=== PATIENT | female | born 1995 | race Caucasian/White ===

== ENCOUNTER → 2023-04-23 15:44 | Outpatient (CLI) | payer OTHER, SELFPAY ==
--- NOTE | ~2023-04-23 | US_ITS ---
EXAMINATION: US OB <=14 wk fetus w TV DATE: 04/23/2023 16:14 INDICATION: with inconclusive viability. TECHNIQUE: Real-time transabdominal and transvaginal pelvic ultrasound was performed. COMPARISON: None. FINDINGS: TRANSABDOMINAL ULTRASOUND: The uterus measures 9.4 x 5.8 x 6.2 cm. TRANSVAGINAL ULTRASOUND: There is an intrauterine gestational sac. A yolk sac is identified. The fet al crown rump length measures 2.1 cm, which correlates with an estimated gestational age of 8 weeks a nd 5 day(s) (+/-) 5 day(s). heart motion is identified measuring 176 beats per minute (bpm) by M-mode Doppler. The right ovary is not visualized. The left ovary measures 2.5 x 1.3 x 1.3 cm. There is no free fluid in the pelvis. IMPRESSION: 1. Single living intrauterine gestation with estimated date of delivery of 11/28/2023. Reviewed, dictated and finalized at location A. [employer]PERATIONS SUPERVISOR IMPRESSION: 1. Single living intrauterine gestation with estimated date of delivery of 11/27.
== END ==
PROVIDERS: PCP Nurse Practitioner Family; Visit Provider Nurse Practitioner Family
DX: O36.80X0 Pregnancy with inconclusive fetal viability, not applicable or unspecified (principal); Z3A.00 Weeks of gestation of pregnancy not specified
CPT/HCPCS: 76801; 76817

== ENCOUNTER 2023-08-25 12:42 | Outpatient (CLI) | payer OTHER, SELFPAY ==
[2023-08-25 14:12] LABS: Basophils Percent Auto 0.2 % (0.2-1.2); Eosinophils Absolute Auto 0.1 K/mm3 (0-0.3); Eosinophils Percent Auto 0.5 % (0-4.4); Hematocrit 30.3 % (37.0-47.0); Hemoglobin 10.5 g/dL (12.0-15.0); Immature Granulocyte Absolute 0.12 K/mm3 (0.00-0.031); Immature Granulocyte Percent A 0.9 % (0-0.5); Lymphocytes Absolute Auto 1.79 K/mm3 (0.9-3.2); Lymphocytes Percent Auto 13.8 % (18.3-44.2); Mean Corpuscular HGB Conc 34.7 g/dl (32-36); Mean Corpuscular Hemoglobin 31.5 pg (26-34); Mean Platelet Volume 8.7 fl (7.4-10.4); Monocytes Absolute Auto 0.7 K/mm3 (0.1-0.6); Monocytes Percent Auto 5.1 % (2.6-8.5); Neutrophils Absolute Auto 10.3 K/mm3 (1.3-6.7); Neutrophils Percent Auto 79.5 % (45.5-73.1); Platelet Count Result 250 k/mm3 (150-375); Red Blood Count 3.33 M/mm3 (4.2-5.4); Red Cell Distribution Width 12.4 % (11.5-14.5)
[2023-08-25 14:25] LABS: Alanine Aminotransferase 16 U/L (6-35); Albumin Level 3.7 g/dL (3.5-5.1); Alkaline Phosphatase 50 U/L (38-126); Anion Gap 6 mmol/L (4-12); Aspartate Amino Transferase 18 U/L (14-36); Bilirubin,Total 0.4 mg/dL (0.2-1.3); Blood Urea Nitrogen 6 mg/dL (7-17); Carbon Dioxide 21 mmol/L (22-30); Chloride 107 mmol/L (98-107); Estimated Glomerular Filt Rate > 60; Glucose 165 mg/dL (65-110); Glucose 1 Hour PP 50gm Dose 164 mg/dL; Potassium 3.2 mmol/L (3.4-5.0); Sodium 134 mmol/L (137-145)
[2023-08-31 17:53] LABS: Chenodeoxycholic Acid <0.5 umol/L (< OR = 3.9); Cholic Acid <0.5 umol/L (< OR = 2.8); Deoxycholic Acid <0.5 umol/L (< OR = 2.3); Total Bile Acids <1.5 umol/L (< OR = 8.3)
== END 2023-08-25 12:43 | disposition home or self-care (01) ==
LOC: ANHLAB 12:43
PROVIDERS: PCP Nurse Practitioner Family; Visit Provider Nurse Practitioner Family
DX: O99.719 Diseases of the skin and subcutaneous tissue complicating pregnancy, unspecified trimester (principal); L29.9 Pruritus, unspecified
CPT/HCPCS: 36415; 80053; 82542; 82947; 85025

== ENCOUNTER 2023-08-28 07:29 | Outpatient (CLI) | payer OTHER, SELFPAY ==
[2023-08-28 08:09] LABS: Glucose Fasting Gestational 78 mg/dL (>/=95)
[2023-08-28 09:43] LABS: Glucose 1 Hour Gest 128 mg/dL (>/=180)
[2023-08-28 11:18] LABS: Glucose 2 Hour Gest 111 mg/dL (>/= 155)
[2023-08-28 12:47] LABS: Glucose 3 Hour Gest 32 mg/dL (>/=140)
== END 2023-08-28 07:30 | disposition home or self-care (01) ==
LOC: ANHLAB 07:31
PROVIDERS: PCP Nurse Practitioner Family; Visit Provider Nurse Practitioner Family
DX: O99.810 Abnormal glucose complicating pregnancy (principal); Z3A.00 Weeks of gestation of pregnancy not specified
CPT/HCPCS: 36415; 82951; 82952

== ENCOUNTER 2023-10-09 13:24 | Outpatient (CLI) | payer OTHER, SELFPAY ==
[2023-10-09 13:45] VITALS: BP 145/86; PULSE 85
[2023-10-09 13:46] VITALS: BP 145/86; PULSE 90; BMI 28.0
[2023-10-09 14:05] VITALS: BP 145/86; PULSE 90
[2023-10-09 14:15] VITALS: BP 141/94; PULSE 74
[2023-10-09 14:18] LABS: Basophils Percent Auto 0.3 % (0.2-1.2); Eosinophils Absolute Auto 0.1 K/mm3 (0-0.3); Eosinophils Percent Auto 0.6 % (0-4.4); Hematocrit 34.2 % (37.0-47.0); Hemoglobin 12.1 g/dL (12.0-15.0); Immature Granulocyte Absolute 0.09 K/mm3 (0.00-0.031); Immature Granulocyte Percent A 0.7 % (0-0.5); Mean Corpuscular HGB Conc 35.4 g/dl (32-36); Mean Corpuscular Volume 90.5 fl (80-100); Mean Platelet Volume 9.3 fl (7.4-10.4); Monocytes Absolute Auto 0.9 K/mm3 (0.1-0.6); Neutrophils Absolute Auto 9.4 K/mm3 (1.3-6.7); Neutrophils Percent Auto 77.4 % (45.5-73.1); Platelet Count Result 231 k/mm3 (150-375); Red Blood Count 3.78 M/mm3 (4.2-5.4); Red Cell Distribution Width 12.3 % (11.5-14.5); White Blood Count 12.2 K/mm3 (4.5-10.0)
[2023-10-09 14:19] LABS: Appearance Urine Clear (Clear); Bilirubin Urine Negative (Negative); Blood Urine Negative (Negative); Color Urine Yellow (Yellow); Glucose Urine UA Negative (Negative); Ketones Urine Negative (Negative); Leukocyte Esterase Ur Negative LEU/UL (Negative); Nitrate Urine Negative (Negative); Protein Urine Negative (Negative); Specific Grav Ur 1.007 (1.001-1.035); Urobilinogen Urine 0.2 mg/dL (<2.0)
[2023-10-09 14:25] LABS: Creatinine Urine 42.7 mg/dL; Total Protein Urine Random 19 mg/dL; Ur Ttl Prot Creatinine Ratio 0.44 mg/mg (0-0.20)
[2023-10-09 14:26] LABS: Add Urine Microscopic? NO
[2023-10-09 14:30] VITALS: BP 143/91; PULSE 68
[2023-10-09 14:30] LABS: Alanine Aminotransferase 11 U/L (6-35); Albumin Level 3.6 g/dL (3.5-5.1); Alkaline Phosphatase 77 U/L (38-126); Anion Gap 9 mmol/L (4-12); Aspartate Amino Transferase 16 U/L (14-36); Bilirubin,Total 0.3 mg/dL (0.2-1.3); Blood Urea Nitrogen 5 mg/dL (7-17); Calcium 8.9 mg/dL (8.4-10.2); Carbon Dioxide 22 mmol/L (22-30); Chloride 103 mmol/L (98-107); Estimated Glomerular Filt Rate > 60; Glucose 118 mg/dL (65-110); Potassium 3.6 mmol/L (3.4-5.0); Sodium 134 mmol/L (137-145); Uric Acid 3.8 mg/dL (2.5-7.5)
[2023-10-09 14:42] VITALS: BP 136/81; PULSE 74
--- NOTE | 2023-10-09 14:47 | PC.NURSE ---
Dr. West informed of reactive NST, BP's, and labs including total protein / creatinine ratio. Orders for discharge received.
[2023-10-09 15:10] LABS: HIV 1/2 Ab P24 Ag Result Negative (Negative)
[2023-10-12 11:26] LABS: Rapid Plasma Reagin Non-Reactive (NonReactive)
== END 2023-10-09 15:41 | disposition home or self-care (01) ==
LOC: ANHOBOP 13:32 → ANHOBPP 13:34
PROVIDERS: PCP Nurse Practitioner Family; Visit Provider Obstetrics & Gynecology
DX: O13.9 Gestational [pregnancy-induced] hypertension without significant proteinuria, unspecified trimester (principal); Z3A.00 Weeks of gestation of pregnancy not specified
CPT/HCPCS: 36415; 59025; 80053; 81003; 82570; 84156; 84550; 85025; 86592; 86703; 99199; G0432

== ENCOUNTER 2023-10-10 15:24 | Outpatient (NON) | payer OTHER, SELFPAY ==
[2023-10-10 15:34] VITALS: BMI 28.0
[2023-10-10 16:01] LABS: Collection Time Urine 24 HOURS
[2023-10-10 16:02] LABS: Total Volume 24 Hour Urine 2000 ml
[2023-10-10 16:10] LABS: Total Protein Urine Random 23 mg/dL
[2023-10-10 16:11] LABS: Creatinine Urine 62.4 mg/dL; Patient Weight 158 Lbs
[2023-10-10 16:23] LABS: Total Protein Urine 24 Hr 460 mg/24hr (28-141); Total Volume 24 Hour Urine 2000 ml
== END 2023-10-10 15:25 | disposition home or self-care (01) ==
LOC: ANHOBOP 15:30
PROVIDERS: PCP Nurse Practitioner Family; Visit Provider Obstetrics & Gynecology
DX: Z34.90 Encounter for supervision of normal pregnancy, unspecified, unspecified trimester (principal); Z3A.00 Weeks of gestation of pregnancy not specified
CPT/HCPCS: 81050; 82575; 84156

== ENCOUNTER 2023-10-13 11:43 | Outpatient (CLI) | payer OTHER, SELFPAY ==
[2023-10-13 12:19] VITALS: BP 144/92; PULSE 70
[2023-10-13 12:20] VITALS: BP 144/92; PULSE 78; BMI 28.0
[2023-10-13 12:23] LABS: Basophils Absolute Auto 0.1 K/mm3 (0.0-0.1); Basophils Percent Auto 0.4 % (0.2-1.2); Eosinophils Percent Auto 0.3 % (0-4.4); Hematocrit 36.8 % (37.0-47.0); Hemoglobin 13.1 g/dL (12.0-15.0); Immature Granulocyte Absolute 0.12 K/mm3 (0.00-0.031); Immature Granulocyte Percent A 0.9 % (0-0.5); Lymphocytes Absolute Auto 1.91 K/mm3 (0.9-3.2); Lymphocytes Percent Auto 14.7 % (18.3-44.2); Mean Corpuscular HGB Conc 35.6 g/dl (32-36); Mean Corpuscular Hemoglobin 32.3 pg (26-34); Mean Corpuscular Volume 90.6 fl (80-100); Mean Platelet Volume 9.5 fl (7.4-10.4); Monocytes Absolute Auto 0.9 K/mm3 (0.1-0.6); Monocytes Percent Auto 6.5 % (2.6-8.5); Neutrophils Absolute Auto 10.1 K/mm3 (1.3-6.7); Neutrophils Percent Auto 77.2 % (45.5-73.1); Platelet Count Result 260 k/mm3 (150-375); Red Blood Count 4.06 M/mm3 (4.2-5.4); Red Cell Distribution Width 12.4 % (11.5-14.5)
[2023-10-13 12:30] VITALS: BP 143/84; PULSE 72
[2023-10-13 12:35] LABS: Alanine Aminotransferase 11 U/L (6-35); Albumin Level 3.8 g/dL (3.5-5.1); Alkaline Phosphatase 97 U/L (38-126); Anion Gap 10 mmol/L (4-12); Aspartate Amino Transferase 17 U/L (14-36); Bilirubin,Total 0.5 mg/dL (0.2-1.3); Blood Urea Nitrogen 9 mg/dL (7-17); Calcium 10.1 mg/dL (8.4-10.2); Carbon Dioxide 21 mmol/L (22-30); Chloride 102 mmol/L (98-107); Estimated Glomerular Filt Rate > 60; Glucose 71 mg/dL (65-110); Potassium 4.4 mmol/L (3.4-5.0); Sodium 133 mmol/L (137-145); Uric Acid 3.9 mg/dL (2.5-7.5)
[2023-10-13 12:45] VITALS: BP 150/88; PULSE 85
[2023-10-13 13:00] VITALS: BP 143/86; PULSE 81
[2023-10-13 13:03] VITALS: BP 143/86; PULSE 79
--- NOTE | 2023-10-13 14:15 | PC.NURSE ---
Dr. West returned call and informed of BP's, lab results, and reactive NST. Orders for testing received.
== END 2023-10-13 14:19 | disposition home or self-care (01) ==
LOC: ANHOBOP 11:50 → ANHLDR 11:53
PROVIDERS: PCP Nurse Practitioner Family; Visit Provider Obstetrics & Gynecology
DX: O13.9 Gestational [pregnancy-induced] hypertension without significant proteinuria, unspecified trimester (principal); O14.00 Mild to moderate pre-eclampsia, unspecified trimester; Z3A.00 Weeks of gestation of pregnancy not specified
CPT/HCPCS: 36415; 59025; 80053; 84550; 85025; 99199

== ENCOUNTER 2023-10-18 17:54 | Outpatient (CLI) | payer OTHER, SELFPAY ==
[2023-10-18] VITALS (7 sets, daily range): BP systolic 140–154; BP diastolic 84–96; PULSE 67–72
[2023-10-18 18:39] LABS: Basophils Absolute Auto 0.1 K/mm3 (0.0-0.1); Basophils Percent Auto 0.4 % (0.2-1.2); Eosinophils Absolute Auto 0.1 K/mm3 (0-0.3); Eosinophils Percent Auto 0.6 % (0-4.4); Hematocrit 32.6 % (37.0-47.0); Hemoglobin 11.6 g/dL (12.0-15.0); Immature Granulocyte Absolute 0.08 K/mm3 (0.00-0.031); Immature Granulocyte Percent A 0.6 % (0-0.5); Mean Corpuscular HGB Conc 35.6 g/dl (32-36); Mean Corpuscular Hemoglobin 32.2 pg (26-34); Mean Corpuscular Volume 90.6 fl (80-100); Mean Platelet Volume 9.6 fl (7.4-10.4); Monocytes Absolute Auto 0.8 K/mm3 (0.1-0.6); Monocytes Percent Auto 6.4 % (2.6-8.5); Platelet Count Result 209 k/mm3 (150-375); Red Cell Distribution Width 12.3 % (11.5-14.5); White Blood Count 13.1 K/mm3 (4.5-10.0)
[2023-10-18 18:46] LABS: Creatinine Urine 26.8 mg/dL; Total Protein Urine Random 23 mg/dL; Ur Ttl Prot Creatinine Ratio 0.86 mg/mg (0-0.20)
[2023-10-18 18:50] LABS: Alanine Aminotransferase 10 U/L (6-35); Albumin Level 3.4 g/dL (3.5-5.1); Alkaline Phosphatase 93 U/L (38-126); Anion Gap 8 mmol/L (4-12); Aspartate Amino Transferase 18 U/L (14-36); Bilirubin,Total 0.3 mg/dL (0.2-1.3); Blood Urea Nitrogen 9 mg/dL (7-17); Calcium 9.6 mg/dL (8.4-10.2); Carbon Dioxide 19 mmol/L (22-30); Chloride 106 mmol/L (98-107); Estimated Glomerular Filt Rate > 60; Glucose 73 mg/dL (65-110); Potassium 3.8 mmol/L (3.4-5.0); Sodium 133 mmol/L (137-145); Uric Acid 4.6 mg/dL (2.5-7.5)
[2023-10-18 18:59] LABS: Appearance Urine Clear (Clear); Bilirubin Urine Negative (Negative); Blood Urine Negative (Negative); Color Urine Yellow (Yellow); Glucose Urine UA Negative (Negative); Ketones Urine Negative (Negative); Leukocyte Esterase Ur Negative LEU/UL (Negative); Nitrate Urine Negative (Negative); Protein Urine Negative (Negative); Specific Grav Ur 1.006 (1.001-1.035); Urobilinogen Urine 0.2 mg/dL (<2.0)
[2023-10-18 19:00] LABS: Add Urine Microscopic? NO
--- NOTE | 2023-10-19 09:36 | P.PNOB_ITS ---
OB - Triage/Final Diagnosis Visit Information Date of evaluation: 10/18/23 Reason for evaluation: other (elevated BP) Comments/Additional reasons for admission: I have assessed the risk for this patient, Michela Cadena, and determined that she would benefit from observation care. Evaluation Laboratory results: Laboratory Tests 10/18/23 18:31 WBC 13.1 H RBC 3.60 L Hgb 11.6 L Hct 32.6 L MCV 90.6 MCH 32.2 MCHC 35.6 RDW 12.3 Plt Count 209 MPV 9.6 Immature Gran % (Auto) 0.6 H Neut % (Auto) 76.0 H Lymph % (Auto) 16.0 L [place] % (Auto) 6.4 Eos % (Auto) 0.6 Baso % (Auto) 0.4 Lymph # (Auto) 2.10 [place] # (Auto) 0.8 H Eos # (Auto) 0.1 Baso # (Auto) 0.1 Abs Immat Gran (auto) 0.08 H Absolute Neuts (auto) 10.0 H Absolute Nucleated RBC 0.000 Nucleated RBC % 0.0 Sodium 133 L Potassium 3.8 Chloride 106 Carbon Dioxide 19 L Anion Gap 8 BUN 9 Creatinine 0.40 L Estim Creat Clear Calc Not Reportable Estimated GFR > 60 Glucose 73 Uric Acid 4.6 Calcium 9.6 Total Bilirubin 0.3 AST 18 ALT 10 Alkaline Phosphatase 93 Total Protein 6.0 L Albumin 3.4 L Urine Color Yellow Urine Appearance Clear Urine pH 7.0 Ur Specific [place] 1.006 Urine Protein Negative Urine Glucose (UA) Negative Urine Ketones Negative Ur Blood (Man) Negative Urine Nitrate Negative Urine Bilirubin Negative Urine Urobilinogen 0.2 Leukocyte Esterase Rfl Negative U Random Total Protein 23 Urine Creatinine 26.8 Protein/Creat Ratio 2 0.86 H Vital signs: Vital Signs - 24 hr 10/18/23 18:15 10/18/23 18:45 10/18/23 19:00 Pulse Rate 71 72 67 Blood Pressure 154/96 H 140/90 141/84 H 10/18/23 19:15 10/18/23 19:45 10/18/23 20:00 Pulse Rate 70 67 72 Blood Pressure 148/93 H 149/91 H 151/93 H 10/18/23 20:15 Pulse Rate 72 Blood Pressure 143/85 H
== END 2023-10-18 20:22 | disposition home or self-care (01) ==
LOC: ANHOBOP 17:58 → ANHOBPP 10-26 07:06
PROVIDERS: PCP Nurse Practitioner Family; Visit Provider Obstetrics & Gynecology
DX: O13.9 Gestational [pregnancy-induced] hypertension without significant proteinuria, unspecified trimester (principal)
CPT/HCPCS: 36415; 59025; 80053; 81003; 82570; 84156; 84550; 85025; 99199

== ENCOUNTER 2023-10-24 12:39 | Outpatient (RCR) | payer OTHER, SELFPAY ==
[2023-10-16 11:48] VITALS: BP 141/97; PULSE 82
[2023-10-20 11:25] LABS: Hemoglobin 11.9 g/dL (12.0-15.0); Mean Corpuscular Hemoglobin 32.1 pg (26-34); Mean Corpuscular Volume 91.6 fl (80-100); Mean Platelet Volume 9.8 fl (7.4-10.4); Platelet Count Result 217 k/mm3 (150-375); Red Blood Count 3.71 M/mm3 (4.2-5.4); Red Cell Distribution Width 12.5 % (11.5-14.5); White Blood Count 11.6 K/mm3 (4.5-10.0)
[2023-10-20 11:37] LABS: Alanine Aminotransferase 10 U/L (6-35); Albumin Level 3.6 g/dL (3.5-5.1); Alkaline Phosphatase 84 U/L (38-126); Anion Gap 9 mmol/L (4-12); Aspartate Amino Transferase 16 U/L (14-36); Bilirubin,Total 0.3 mg/dL (0.2-1.3); Blood Urea Nitrogen 12 mg/dL (7-17); Calcium 9.5 mg/dL (8.4-10.2); Carbon Dioxide 23 mmol/L (22-30); Chloride 103 mmol/L (98-107); Estimated Glomerular Filt Rate > 60; Glucose 77 mg/dL (65-110); Potassium 3.8 mmol/L (3.4-5.0); Sodium 135 mmol/L (137-145); Uric Acid 5.2 mg/dL (2.5-7.5)
[2023-10-20 11:48] LABS: Creatinine Urine 153.8 mg/dL; Total Protein Urine Random 42 mg/dL; Ur Ttl Prot Creatinine Ratio 0.27 mg/mg (0-0.20)
[2023-10-20 12:39] VITALS: BP 141/97; PULSE 91
[2023-10-23] MEDS: BETAMETHASONE SOD PHOS/ACETATE 30 MG/5 ML VIAL 12 MG IM (12:25)
[2023-10-23 12:40] LABS: Hematocrit 30.5 % (37.0-47.0); Hemoglobin 10.7 g/dL (12.0-15.0); Mean Corpuscular HGB Conc 35.1 g/dl (32-36); Mean Corpuscular Volume 91.3 fl (80-100); Mean Platelet Volume 9.6 fl (7.4-10.4); Platelet Count Result 204 k/mm3 (150-375); Red Blood Count 3.34 M/mm3 (4.2-5.4); Red Cell Distribution Width 12.4 % (11.5-14.5); White Blood Count 10.4 K/mm3 (4.5-10.0)
[2023-10-23 13:30] LABS: HIV 1/2 Ab P24 Ag Result Negative (Negative)
[2023-10-23 16:02] LABS: Rapid Plasma Reagin Non-Reactive (NonReactive)
[2023-10-23 16:05] VITALS: BP 128/77; PULSE 87
[2023-10-23 17:46] VITALS: BP 128/77; PULSE 87
--- NOTE | ~2023-10-24 | US_ITS ---
EXAMINATION: US OB limited DATE: 10/20/2023 12:24 INDICATION: -induced hypertension. Third trimester. TECHNIQUE: Real-time ultrasound of the pelvis was performed. COMPARISON: Ultrasound 04/23/2023 FINDINGS: There is a single fetus in vertex presentation. The placenta is on the right. heart rate is 14 5 beats per minute (bpm). The amniotic fluid index is 14.5 cm, which is normal. IMPRESSION: 1. Single living fetus in vertex presentation. 2. Normal amniotic fluid index. Reviewed, dictated and finalized at location A.
[2023-10-24] MEDS: BETAMETHASONE SOD PHOS/ACETATE 30 MG/5 ML VIAL 12 MG IM (12:50)
== END 2023-10-24 12:53 | disposition home or self-care (01) ==
LOC: ANHOBOP 12:39
PROVIDERS: PCP Nurse Practitioner Family; Visit Provider Obstetrics & Gynecology
DX: O14.93 Unspecified pre-eclampsia, third trimester (principal); O16.3 Unspecified maternal hypertension, third trimester; Z11.4 Encounter for screening for human immunodeficiency virus [HIV]; Z11.3 Encounter for screening for infections with a predominantly sexual mode of transmission; Z3A.33 33 weeks gestation of pregnancy; Z3A.34 34 weeks gestation of pregnancy
CPT/HCPCS: 36415; 59025; 76815; 80053; 82570; 84156; 84550; 85027; 86592; 86703; 96372; G0432; J0702

== ENCOUNTER 2023-11-06 15:10 | Outpatient (RCR) | payer OTHER, SELFPAY ==
[2023-10-27 11:38] LABS: Basophils Percent Auto 0.3 % (0.2-1.2); Eosinophils Percent Auto 0.3 % (0-4.4); Hematocrit 32.5 % (37.0-47.0); Hemoglobin 11.4 g/dL (12.0-15.0); Immature Granulocyte Absolute 0.12 K/mm3 (0.00-0.031); Immature Granulocyte Percent A 0.9 % (0-0.5); Lymphocytes Absolute Auto 2.46 K/mm3 (0.9-3.2); Lymphocytes Percent Auto 18.9 % (18.3-44.2); Mean Corpuscular HGB Conc 35.1 g/dl (32-36); Mean Corpuscular Hemoglobin 32.5 pg (26-34); Mean Corpuscular Volume 92.6 fl (80-100); Mean Platelet Volume 9.9 fl (7.4-10.4); Monocytes Percent Auto 7.6 % (2.6-8.5); Neutrophils Absolute Auto 9.4 K/mm3 (1.3-6.7); Platelet Count Result 241 k/mm3 (150-375); Red Blood Count 3.51 M/mm3 (4.2-5.4); Red Cell Distribution Width 12.6 % (11.5-14.5)
[2023-10-27 11:44] LABS: Creatinine Urine 195.5 mg/dL; Total Protein Urine Random 114 mg/dL; Ur Ttl Prot Creatinine Ratio 0.58 mg/mg (0-0.20)
[2023-10-27 11:48] LABS: Alanine Aminotransferase 11 U/L (6-35); Albumin Level 3.2 g/dL (3.5-5.1); Alkaline Phosphatase 83 U/L (38-126); Anion Gap 8 mmol/L (4-12); Aspartate Amino Transferase 27 U/L (14-36); Bilirubin,Total 0.3 mg/dL (0.2-1.3); Blood Urea Nitrogen 12 mg/dL (7-17); Calcium 8.8 mg/dL (8.4-10.2); Carbon Dioxide 22 mmol/L (22-30); Chloride 103 mmol/L (98-107); Estimated Glomerular Filt Rate > 60; Glucose 79 mg/dL (65-110); Potassium 3.6 mmol/L (3.4-5.0); Sodium 133 mmol/L (137-145); Uric Acid 5.8 mg/dL (2.5-7.5)
[2023-10-27 11:53] LABS: Add Urine Microscopic? YES; Appearance Urine Turbid (Clear); Bacteria Urine 4+ /hpf; Bilirubin Urine Negative (Negative); Blood Urine Negative (Negative); Color Urine Yellow (Yellow); Glucose Urine UA Negative (Negative); Ketones Urine Trace mg/dL (Negative); Leukocyte Esterase Ur Trace LEU/UL (Negative); Need Manual Microscopic Reviewed; Nitrate Urine Negative (Negative); Protein Urine 2+ mg/dL (Negative); RBC Urine 21-50 /hpf (0-2); Specific Grav Ur 1.022 (1.001-1.035); Squamous Epithelial Cell Urine Moderate /hpf (Few); WBC Urine 51-100 /hpf (0-3); pH Urine 6.5 (5.0-9.0)
[2023-10-27 12:09] VITALS: BP 152/88; PULSE 65
--- NOTE | 2023-10-27 13:01 | PC.NURSE ---
Dr. West notified of lab results, vital signs, NST and DEMETRIUS. Okay to discharge
[2023-10-30 12:12] VITALS: BP 134/80; PULSE 84
[2023-11-03 15:49] LABS: Basophils Absolute Auto 0.1 K/mm3 (0.0-0.1); Basophils Percent Auto 0.4 % (0.2-1.2); Eosinophils Absolute Auto 0.1 K/mm3 (0-0.3); Hematocrit 36.1 % (37.0-47.0); Hemoglobin 12.5 g/dL (12.0-15.0); Immature Granulocyte Absolute 0.08 K/mm3 (0.00-0.031); Immature Granulocyte Percent A 0.6 % (0-0.5); Lymphocytes Percent Auto 15.4 % (18.3-44.2); Mean Corpuscular HGB Conc 34.6 g/dl (32-36); Mean Corpuscular Hemoglobin 31.9 pg (26-34); Mean Corpuscular Volume 92.1 fl (80-100); Mean Platelet Volume 9.8 fl (7.4-10.4); Monocytes Absolute Auto 0.9 K/mm3 (0.1-0.6); Monocytes Percent Auto 6.5 % (2.6-8.5); Neutrophils Absolute Auto 10.4 K/mm3 (1.3-6.7); Neutrophils Percent Auto 76.1 % (45.5-73.1); Platelet Count Result 255 k/mm3 (150-375); Red Blood Count 3.92 M/mm3 (4.2-5.4); Red Cell Distribution Width 12.5 % (11.5-14.5); White Blood Count 13.6 K/mm3 (4.5-10.0)
[2023-11-03 15:57] VITALS: BP 140/85; PULSE 74
[2023-11-03 15:59] LABS: Alanine Aminotransferase 11 U/L (6-35); Albumin Level 3.8 g/dL (3.5-5.1); Alkaline Phosphatase 115 U/L (38-126); Anion Gap 11 mmol/L (4-12); Aspartate Amino Transferase 18 U/L (14-36); Bilirubin,Total 0.3 mg/dL (0.2-1.3); Blood Urea Nitrogen 10 mg/dL (7-17); Calcium 9.2 mg/dL (8.4-10.2); Carbon Dioxide 21 mmol/L (22-30); Chloride 102 mmol/L (98-107); Creatinine Urine 23.9 mg/dL; Estimated Glomerular Filt Rate > 60; Glucose 102 mg/dL (65-110); Potassium 3.9 mmol/L (3.4-5.0); Sodium 134 mmol/L (137-145); Total Protein Urine Random 34 mg/dL; Ur Ttl Prot Creatinine Ratio 1.42 mg/mg (0-0.20); Uric Acid 5.1 mg/dL (2.5-7.5)
[2023-11-03 16:02] LABS: Add Urine Microscopic? YES; Appearance Urine Clear (Clear); Bacteria Urine None Seen /hpf; Bilirubin Urine Negative (Negative); Blood Urine Negative (Negative); Color Urine Yellow (Yellow); Glucose Urine UA Negative (Negative); Ketones Urine Negative (Negative); Leukocyte Esterase Ur Negative LEU/UL (Negative); Need Manual Microscopic Reviewed; Nitrate Urine Negative (Negative); Non Pathogenic Casts 0-2; Protein Urine Trace mg/dL (Negative); RBC Urine 0-2 /hpf (0-2); Specific Grav Ur 1.005 (1.001-1.035); Squamous Epithelial Cell Urine None Seen /hpf (Few); Urobilinogen Urine 0.2 mg/dL (<2.0); WBC Urine 0-5 /hpf (0-3); pH Urine 6.5 (5.0-9.0)
--- NOTE | ~2023-11-06 | US_ITS ---
EXAMINATION: US OB limited DATE: 10/30/2023 12:07 INDICATION: -induced hypertension. Third trimester. TECHNIQUE: Real-time ultrasound of the pelvis was performed. COMPARISON: Ultrasound 10/27/2023 FINDINGS: There is a single fetus in vertex presentation. The placenta is on the right. heart rate is 16 5 beats per minute (bpm). The cervical length is 3.1 cm on transabdominal images, which is normal. Th e amniotic fluid index is 9.8 cm cm, which is normal. IMPRESSION: 1. Single living fetus in vertex presentation. Reviewed, dictated and finalized at location A.
--- NOTE | ~2023-11-06 | US_ITS ---
LIMITED OBSTETRIC ULTRASOUND/BIOPHYSICAL PROFILE Ordering provider: Allan West MD History: . GHTN/ DEMETRIUS . Comparison: All FINDINGS: Single live fetus. PRESENTATION: Vertex. Longitudinal lie PLACENTAL LOCATION: Maternal right. No previa. HEART RATE: 144 bpm (normal is between 110 to 160 bpm). AMNIOTIC FLUID INDEX: 14.2 cm. 5th percentile is 7.9 cm. 95th percentile 24.9 cm. Largest vertical p ocket is 5 cm. IMPRESSION: Single live fetus of cephalic presentation. Normal amniotic fluid. Reviewed, dictated and finalized at location A.
--- NOTE | ~2023-11-06 | US_ITS ---
EXAMINATION: US OB BPP wo non-stress DATE: 11/06/2023 16:37 INDICATION: Hypertension during third trimester TECHNIQUE: Real-time pelvic ultrasound was performed. The interpreting radiologist was not present fo r the study. COMPARISON: None. FINDINGS: There is a single living fetus in vertex presentation. The placenta is anterior. heart rate is 140 beats per minute (bpm). Amniotic fluid volume is subjectively normal with normal deepest vertica l pocket measurement of 3.3 cm . Biophysical profile performed by the technologist: breathing (30 sec sustained breathing in 30 minutes): 2 out of 2 movement (3 gross body movements in 30 minutes): 2 out of 2 tone (one episode of wvcyzkv-lpfanqwcr-fqlcvbe limb movement): 2 out of 2 Amniotic fluid pocket (2 cm): 2 out of 2 Total score: 8 out of 8 IMPRESSION: 1. Single living fetus in vertex presentation with heart rate of 140 bpm. 2. Biophysical profile 8 out of 8. Reviewed, dictated and finalized at location A.
--- NOTE | ~2023-11-06 | US_ITS ---
EXAMINATION: US OB limited DATE: 11/03/2023 16:47 INDICATION: -induced hypertension. Assess amniotic fluid index. TECHNIQUE: Real-time ultrasound of the pelvis was performed. The interpreting radiologist was not pre sent for the study. COMPARISON: None. FINDINGS: There is a single living fetus in breech presentation. The placenta is on maternal right. hear t rate is 163 beats per minute (bpm). The amniotic fluid index is 9.3 cm, which is normal (5th%-95%: 7.7-24.9 cm at 36 weeks estimated gestational age). IMPRESSION: 1. Single living fetus in breech presentation with heart rate of 163 bpm. 2. Normal amniotic fluid index of 9.3 cm. Reviewed, dictated and finalized at location A.
[2023-11-06 16:01] VITALS: BP 133/74; PULSE 90
== END 2023-11-16 10:44 | disposition home or self-care (01) ==
LOC: ANHOBOP 15:10
PROVIDERS: PCP Nurse Practitioner Family; Visit Provider Obstetrics & Gynecology
DX: O13.9 Gestational [pregnancy-induced] hypertension without significant proteinuria, unspecified trimester (principal); Z3A.35 35 weeks gestation of pregnancy; Z3A.36 36 weeks gestation of pregnancy
CPT/HCPCS: 36415; 59025; 76815; 76819; 80053; 81001; 82570; 84156; 84550; 85025; 87086; 87088

== ENCOUNTER 2023-11-09 16:57 | Inpatient (IN) | payer OTHER, SELFPAY ==
[2023-11-09] VITALS (18 sets, daily range): BP systolic 135–156; BP diastolic 85–104; PULSE 62–77; TEMP 36.7–37.1; BMI 28.5
--- NOTE | 2023-11-09 17:25 | WPDANESEPP ---
Anes - Eval Pre Procedure Procedure: labor epidural Date/Time: 11/09/23 17:25 Pre Op Diagnosis: Induction of Labor Patient Data Age: 28 Gender: F Height: Weight: Allergies Allergy/AdvReac Type Severity Reaction Status Date / Time prednisone Allergy Muscle Verified 11/04/23 15:05 Spasms Home Medications Medication Instructions Recorded Confirmed Type escitalopram oxalate 10 mg tablet 10 mg PO DAILY 12/16/22 11/05/23 History (Lexapro) ferrous sulfate 325 mg (65 mg 325 mg PO DAILY 10/09/23 11/05/23 History iron) tablet RSV vac, preF A and preF B(PF) 120 0.5 ml IM ONCE #1 ea 10/23/23 11/05/23 Rx mcg/0.5 mL IM solution (Abrysvo (PF)) prenat.vits,noemi,mec-whgv-sqmwa 1 tablet 10/30/23 11/05/23 History labetalol 200 mg tablet 200 mg PO Q12H #30 tabs 11/05/23 Rx Patient hx anesthesia problems: none Family hx anesthesia problems: none Results Review: All pre-operative results and documents have been reviewed as part of the pre-operative evaluation. [facility] Past Medical History Medical History Anxiety Encounter for cervical Pap smear with pelvic exam Family History Family History Father Hypertension Depression Mother Depression Sibling Depression Social History Social History Smoking status: Never smoker Alcohol intake: current Drinks per week: 2 Substance use: never Lack of Transportation: No Lack of Food: Never True Current Housing: I Have Housing Concerned About Future Housing: No Difficulty Paying Gas/Electric Bills: No Difficulty Paying for Meds: No Currently Unemployed: No Education: Master's Degree or Higher Difficulty w/ Childcare or Family Care: No Occupation/Education: occupation 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
--- NOTE | 2023-11-09 17:53 | LDADM ---
This patient, Michela Cadena, was admitted to Labor/Delivery/Recovery 107 on 11/09/23 at 16:57. Plans for labor, pain management and were discussed with patient. Patient/family oriented to hospital policies and general routines including ID bracelet, bed and alarms, visiting hours, pain management, procedures, bathroom and other care routines, personal items, smoking policy, room service/diet and guest tray routines, infant security routines, and visiting hours. Patient/Family are encouraged to report perceived risks to care and to ask questions if they do not understand what they are told or what they should do. See OBIX for further documentation.
[2023-11-09 17:57] LABS: Basophils Absolute Auto 0.1 K/mm3 (0.0-0.1); Basophils Percent Auto 0.4 % (0.2-1.2); Eosinophils Absolute Auto 0.1 K/mm3 (0-0.3); Eosinophils Percent Auto 0.4 % (0-4.4); Hematocrit 32.7 % (37.0-47.0); Hemoglobin 11.6 g/dL (12.0-15.0); Immature Granulocyte Absolute 0.05 K/mm3 (0.00-0.031); Immature Granulocyte Percent A 0.4 % (0-0.5); Lymphocytes Absolute Auto 2.05 K/mm3 (0.9-3.2); Lymphocytes Percent Auto 18.4 % (18.3-44.2); Mean Corpuscular HGB Conc 35.5 g/dl (32-36); Mean Corpuscular Hemoglobin 32.1 pg (26-34); Mean Corpuscular Volume 90.6 fl (80-100); Monocytes Absolute Auto 0.8 K/mm3 (0.1-0.6); Monocytes Percent Auto 6.8 % (2.6-8.5); Neutrophils Absolute Auto 8.2 K/mm3 (1.3-6.7); Neutrophils Percent Auto 73.6 % (45.5-73.1); Platelet Count Result 218 k/mm3 (150-375); Red Blood Count 3.61 M/mm3 (4.2-5.4); Red Cell Distribution Width 12.4 % (11.5-14.5); White Blood Count 11.2 K/mm3 (4.5-10.0)
[2023-11-09 18:44] LABS: Uric Acid 5.5 mg/dL (2.5-7.5)
[2023-11-09 18:45] LABS: Alanine Aminotransferase 10 U/L (6-35); Albumin Level 3.4 g/dL (3.5-5.1); Alkaline Phosphatase 104 U/L (38-126); Anion Gap 11 mmol/L (4-12); Aspartate Amino Transferase 18 U/L (14-36); Bilirubin,Total 0.2 mg/dL (0.2-1.3); Blood Urea Nitrogen 11 mg/dL (7-17); Calcium 9.7 mg/dL (8.4-10.2); Carbon Dioxide 19 mmol/L (22-30); Chloride 104 mmol/L (98-107); Estimated CRCL calculation 136 ml/min; Estimated Glomerular Filt Rate > 60; Glucose 90 mg/dL (65-110); Potassium 3.7 mmol/L (3.4-5.0); Sodium 134 mmol/L (137-145)
[2023-11-09 18:49] LABS: HIV 1/2 Ab P24 Ag Result Negative (Negative)
[2023-11-09] MEDS: miSOPROStol 25 MCG TABLET BUCCAL (18:51)
[2023-11-09] MEDS: LABETALOL HCL 100 MG TABLET 400 MG PO (19:26)
[2023-11-09 20:23] LABS: Rapid Plasma Reagin Non-Reactive (NonReactive)
[2023-11-09] MEDS: miSOPROStol 25 MCG TABLET 50 MCG BUCCAL (23:08)
[2023-11-10] VITALS (153 sets, daily range): BP systolic 116–169; BP diastolic 68–107; PULSE 60–104; RESP 16–20; TEMP 36.2–37.5; O2SAT 93–100
[2023-11-10] MEDS: miSOPROStol 25 MCG TABLET 50 MCG BUCCAL (03:06)
[2023-11-10] MEDS: LACTATED RINGERS 1,000 ML 125 ML IV CONT ×2 (07:18→10:55)
[2023-11-10] MEDS: OXYTOCIN 30 UNITS/NS 500 ML 30 UNITS/500 ML BAG 6 UNITS IV CONT ×2 (07:18→23:30)
[2023-11-10] MEDS: LABETALOL HCL 100 MG TABLET 400 MG PO ×2 (09:03→18:36)
--- NOTE | 2023-11-10 11:41 | PM.IMHP ---
H&P: HPI History of Present Illness Date/Time: 11/10/23 11:41 Chief Complaint: Indution of labor Narrative: She is a 28 y/o G1 at 37 weeks admitted for [facility] for pre-eclampsia without severe features. She has been taking Labetolol 200 mg BID. She has had reasurring surveillance testing. She denies severe headache, scotomata or RUQ pain. Review of Systems Review of Systems: All systems reviewed & are unremarkable except as noted in HPI and below Constitutional: Constitutional: Reports no additional constitutional complaints and Denies headache(s) Eyes: Eyes: Denies spots in vision ENT: Reports system reviewed and no additional complaints, except as documented and Denies headache(s) Cardiovascular: Cardiovascular: Denies chest pain and Denies dyspnea Respiratory: Respiratory: Denies dyspnea Gastrointestinal: Gastrointestinal: Reports no additional gastrointestinal complaints Genitourinary: Genitourinary: Reports amenorrhea Musculoskeletal: Musculoskeletal: Reports no additional musculoskeletal complaints Integumentary/Breasts: Skin/Breast: Denies breast mass and Denies rash Neurologic: Denies headache(s) Psychiatric: Psychiatric: Reports no additional psychiatric complaints [facility] Past Medical History Medical History Anxiety Encounter for cervical Pap smear with pelvic exam Family History Family History Father Hypertension Depression Mother Depression Sibling Depression Social History Social History Smoking status: Never smoker Alcohol intake: current Drinks per week: 2 Substance use: never Do You Feel Safe in your Home?: Yes Lack of Transportation: No Lack of Food: Never True Current Housing: I Have Housing Concerned About Future Housing: No Difficulty Paying Gas/Electric Bills: No Difficulty Paying for Meds: No Currently Unemployed: No Education: Master's Degree or Higher Difficulty w/ Childcare or Family Care: No Occupation/Education: occupation 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): Female Sexual Orientation (if Verbalized by the Patient): Straight or Heterosexual Spiritual care concerns: No Meds Home Medications and Allergies Home Medications Medication Instructions Recorded Confirmed Type escitalopram oxalate 10 mg tablet 10 mg PO DAILY 12/16/22 11/09/23 History (Lexapro) ferrous sulfate 325 mg (65 mg 325 mg PO DAILY 10/09/23 11/09/23 History iron) tablet prenat.vits,noemi,inn-eiwe-nrsad 1 tablet PO DAILY 10/30/23 11/09/23 History labetalol 200 mg tablet 200 mg PO Q12H #30 tabs 11/05/23 11/09/23 Rx Allergies Allergy/AdvReac Type Severity Reaction Status Date / Time prednisone Allergy Muscle Verified 11/04/23 15:05 Spasms Vital Signs Vital Signs - 24 hr 11/09/23 17:46 11/09/23 18:01 11/09/23 18:16 Temperature Pulse Rate 65 77 71 Blood Pressure 154/100 H 141/104 H 156/98 H Oxygen Delivery 11/09/23 18:31 11/09/23 18:46 11/09/23 19:05 Temperature Pulse Rate 65 67 62 Blood Pressure 150/97 H 151/88 H 154/101 H Oxygen Delivery 11/09/23 19:31 11/09/23 18:30 11/09/23 20:01 Temperature 98.8 F Pulse Rate 66 75 Blood Pressure 151/100 H 153/98 H Oxygen Delivery 11/09/23 20:31 11/09/23 21:01 11/09/23 21:31 Temperature Pulse Rate 73 69 69 Blood Pressure 152/99 H 150/100 H 145/92 H Oxygen Delivery 11/09/23 22:01 11/09/23 22:31 11/09/23 23:01 Temperature Pulse Rate 67 76 72 Blood Pressure 139/89 141/97 H 143/101 H Oxygen Delivery 11/09/23 23:10 11/09/23 23:31 11/10/23 00:01 Temperature 98.1 F Pulse Rate 65 72 Blood Pressure 135/85 129/78 Oxygen Delivery 11/10/23 00:31 11/10/23 01:
[2023-11-10] MEDS: ACETAMINOPHEN 500 MG TABLET 1000 MG PO (12:51)
--- NOTE | 2023-11-10 15:26 | P.PNOB_ITS ---
OB - PN: Subj Subjective Date/time seen: 11/10/23 15:26 Interval history: fht 145 cat 1, cervix, int os fingertip 30 -3. Attempted Sanches catheter unsuccessful. Will continue Pitocin. OB - PN: Obj Data Labs 11/09/23 17:30 11/09/23 17:30 Labs: Laboratory Results - last 24 hr 11/09/23 17:30 WBC 11.2 H RBC 3.61 L Hgb 11.6 L Hct 32.7 L MCV 90.6 MCH 32.1 MCHC 35.5 RDW 12.4 Plt Count 218 MPV 10.0 Immature Gran % (Auto) 0.4 Neut % (Auto) 73.6 H Lymph % (Auto) 18.4 [place] % (Auto) 6.8 Eos % (Auto) 0.4 Baso % (Auto) 0.4 Lymph # (Auto) 2.05 [place] # (Auto) 0.8 H Eos # (Auto) 0.1 Baso # (Auto) 0.1 Abs Immat Gran (auto) 0.05 H Absolute Neuts (auto) 8.2 H Absolute Nucleated RBC 0.000 Nucleated RBC % 0.0 Sodium 134 L Potassium 3.7 Chloride 104 Carbon Dioxide 19 L Anion Gap 11 BUN 11 Creatinine 0.50 L Estim Creat Clear Calc 136 Estimated GFR > 60 Glucose 90 Uric Acid 5.5 Calcium 9.7 Total Bilirubin 0.2 AST 18 ALT 10 Alkaline Phosphatase 104 Total Protein 6.0 L Albumin 3.4 L RPR Non-reactive HIV 1&2 Ab/P24 Ag 4thGn Negative Blood Type O Positive Antibody Screen Negative OB - PN A/P Time Spent With Patient Time: Total time spent is greater than 50% in coordination of care (as documented) at patient's floor/unit and/or counseling patient:
--- NOTE | 2023-11-10 15:27 | PM.OBPNLAB ---
Pain Control Date/time seen: 11/10/23 1130 fht 140 cat 1, gamez cath inserted, cervix 50/-3
--- NOTE | 2023-11-10 15:28 | PM.OBPNLAB ---
Pain Control Date/time seen: 11/10/23 15:28 fht 145, cat 2, gamez removed, cervix 1.7/-2, AROM, no meconium.
[2023-11-10] MEDS: LABETALOL HCL INJ 100 MG/20 ML VIAL 20 MG IV PUSH (16:59)
[2023-11-10] MEDS: ONDANSETRON INJ 4 MG/2 ML VIAL IV PUSH (17:12)
[2023-11-10] MEDS: MAGNESIUM SULF 4 GM/WATER100ML 4 GM/100 ML BAG IVPB (17:25)
[2023-11-10] MEDS: LABETALOL HCL INJ 100 MG/20 ML VIAL 40 MG IV PUSH (17:32)
[2023-11-10] MEDS: MAGNESIUM SULF 20GM/WATER500ML 500 ML 50 MG IV CONT (17:58)
[2023-11-10] MEDS: LACTATED RINGERS 1,000 ML 75 ML IV CONT (19:44)
[2023-11-11] VITALS (118 sets, daily range): BP systolic 109–161; BP diastolic 51–121; PULSE 25–165; RESP 16–23; TEMP 36.6–37.1; O2SAT 95–100
[2023-11-11] MEDS: CALCIUM CARBONATE (TUMS) 500 MG (200 MG ELEMENTAL) PO (00:50)
[2023-11-11] MEDS: LABETALOL HCL 100 MG TABLET 400 MG PO ×2 (02:31→10:50)
[2023-11-11] MEDS: MAGNESIUM SULF 20GM/WATER500ML 500 ML 50 MG IV CONT ×3 (02:31→22:13)
[2023-11-11] MEDS: LACTATED RINGERS 1,000 ML 75 ML IV CONT ×2 (02:33→11:24)
[2023-11-11] MEDS: FAMOTIDINE 20 MG/2 ML VIAL IV PUSH (05:08)
[2023-11-11] MEDS: ACETAMINOPHEN 500 MG TABLET 1000 MG PO (05:08)
[2023-11-11] MEDS: ONDANSETRON INJ 4 MG/2 ML VIAL IV PUSH (05:08)
--- NOTE | 2023-11-11 05:17 | P.PNOB_ITS ---
Pain Control Date/time seen: 11/11/23 05:17 Comments: fht 130, cat 2, pitocin off due to late decel. She is on Magnesium which was started due to severe range blood pressures, which did respond to two doses of IV labetolol. She was informed of recommendation for due to i ntolerance to labor. She was informed of risk benefits of delivery and risk of continuing to attempt labor and she has agreed with section.
--- NOTE | 2023-11-11 05:22 | WPDHPUPDATE1 ---
History and Physical Update Update Date/Time: 11/11/23 05:22 History and Physical has been reviewed, including an updated exam of the patient. There are NO changes in the patient's condition. Risks, benefits, and alternatives have been discussed and questions answered. Patient agrees to proceed with procedure.
--- NOTE | 2023-11-11 05:22 | W.PM.OBCSD ---
OB - Delivery Note Procedure Delivery date: 11/11/23 Pre-op diagnosis: Failed Induction of Labor, Decelerations and Preeclampsia w severe features (severe range pressures during labor) Post-op Diagnosis: Same Induction method: Per Misoprostol Protocol Delivery augmentation: Rupture of Membranes and Pitocin Delivery monitor: External FHT and Internal Uterine Prior to decision for section, ACOG/SM labor guidelines were considered and discussed with the patient and staff. Decision made to proceed with the section.: Yes Procedure Performed: Primary (For intolerance to labor, failed induction) Surgeon: Allan West MD Anesthesia type: Epidural Description of Procedure/Findings: baby in OT presentation loose nuchal cord, both fallopian tubes and ovaries.6 lb 5 oz Apgars 7 and 9 After informed consent, risks and benefits of the procedure was discussed with the patient. The patient was taken to the operating room where she was placed in the dorsal lithotomy position with leftward tilt. After the prior placed epidural anesthesia was found to be adequate, she was then prepped and draped in the usual sterile fashion. A Pfannenstiel skin incision was made with a scalpel and carried through to the underlying layer of fascia. The fascia was then nicked in the midline, extending bilaterally. The fascia was dissected off the rectus muscles bluntly and sharply, superiorly and inferiorly. The rectus muscles were in the midline, and peritoneum was identified and entered bluntly. The pelvic organs were visualized. The bladder blade was then inserted. The vesicouterine peritoneum was identified and entered sharply with Metzenbaum scissors and extended bilaterally and then the bladder flap was created digitally. The low transverse uterine incision was then made with the scalpel and extended with bilateral index fingers in a crescent-shaped fashion. The head was delivered and the rest of the was delivered. loose nuchal cord was manually reduced. The nose and mouth suctioned. The cord was clamped twice and cut. The was then handed off to the awaiting pediatric staff. The placenta was then delivered manually. The uterine cavity was sponge curretted. The uterus was then exteriorized. The uterine incision was then closed with 0 vicryl in a running locked fashion. Hemostasis noted. A second layer of 0 vicryl was used in an imbricating fashion for hemostasis. posterior Cul-de-sac was irrigated debris and clots were removed The uterus was then returned to the abdomen. Bilateral gutters were cleared off all clots and debris. The uterine incision was noted to be hemostatic. Interceed placed on uterine incision and vertically on front of uterus. The muscle bellies were inspected and noted to be hemostatic. The subfascial layer was noted to be hemostatic, and the fascia was closed with 0 Vicryl in a running fashion. The subcutaneous layer was irrigated and then was then approximated with 3-0 Vicryl.The skin was closed with Ensorb ayla. Skin dermabond applied at incision. All instruments, needle, and lap counts were correct x3. The patient was taken to the recovery room in stable condition. Specimen: Yes ( placenta and cord) Estimated Blood Loss: 465 Urine Output: 475 Drains: No Packing: No Pathology: Yes (placenta) Complications: No immediate complications Condition: Stable Disposition: Floor Baby Date of : 11/11/23 Time of : 05:45 Gestational Age by Date: 37 Infant gender: Female Weight (pounds): 6 Weight (ounces): 5 presentation: transverse position: Right Occiput Transverse Placenta delivery description: Manual Removal Cord Vessel Description: Nuchal Cord (x1) and Loose score one minute: 7 score five minutes: 9 Narrative: She was admitted for [facility] with cytotec for
[2023-11-11] MEDS: AZITHROMYCIN 500 MG/NS 250 ML 500 MG/250 ML BAG 250 MG IVPB (05:26)
[2023-11-11] MEDS: ceFAZolin 2 GM/D5W 50 ML 2 GM/50 ML BAG IVPB (06:42)
[2023-11-11] MEDS: OXYTOCIN 30 UNITS/NS 500 ML 30 UNITS/500 ML BAG 125 UNITS IV CONT (07:12)
--- NOTE | 2023-11-11 09:00 | PC.NURSE ---
Patient transferred to post room #280 via stretcher. Support person present. Oriented to unit, room, information board, rooming in, admission packet and security measures. Patient verbalizes understanding.
--- NOTE | 2023-11-11 10:04 | PC.NURSE ---
Introductions were made, then consulted with patient to assess needs related to . Mother plans to breastfeed and pump, if needed. Explained benefits of skin to skin, stimulating with massage touch, changing positions to encourage wakefulness, how to watch for early feeding cues, responsive feeding, feeding on demand (aiming for 8-12 times in 24 hours, about every 2-3 hours), milk production, building/maintaining a milk supply, duration of feeding, signs of adequate intake/output and how to record on the feeding sheet. Mother works well with her infant with encouragement and education. Reviewed positioning and ear, shoulder, hip alignment, supporting the breast to facilitate a deep latch, asymmetrical latch (off-center), leading with the chin with a big, open, wide gape and body close to mother. latched optimally to the left breast in football position. Infant has difficulty maintaining latch due to congestion in the nares. Mother is able to redirect infant to the breast and re-latch infant appropriately. Education given to the mother of how to visualize the suckling, swallow and how to listen for drinking at the breast (the ka sound). Infant was able to maintain latch without pain to mother protecting the nipple with optimal positioning and latching. Discussed with mother that she should use hand expression to express colostrum and give the colostrum directly to infant if infant is unable to maintain a good latch due to nasal congestion. Mother voiced understanding of education provided and to call if does not latch, or if there is discomfort with . Communcation board updated. Parents voiced understanding of information, demonstrated learning and will call if there is a request for assistance. Reported to the Primary RN.
--- NOTE | 2023-11-11 10:30 | PC.NURSE ---
Per patient the Tylenol PO 1000mg dose charted @ 0508 was not given to her, she does not remember taking any pills this morning.
[2023-11-11] MEDS: ACETAMINOPHEN 325 MG TABLET 650 MG PO ×3 (10:50→23:30)
[2023-11-11] MEDS: KETOROLAC 15 MG/ML VIAL (*BKC) IV PUSH ×3 (10:50→23:30)
[2023-11-11] MEDS: LIDOCAINE 5% PATCH 1 PATCH TRANSDERM (10:51)
--- NOTE | 2023-11-11 12:30 | PC.NURSE ---
Called to patient room for assistance with latching . Mother handles well and is able to latch independently. However, will not maintain latch and will push away the breast after a few suckles each time. Mother is able to hand express colostrum and feed drops of colostrum. Mother attempted to feed for 20 minutes with on and off feeding. This RN remained at bedside for entirety of feeding and assisted minimally. Mother denies any pain when infant is latched and infants latch looks great. placed skin to skin after feeding. Mother will call for assistance with next feeding, if needed.
[2023-11-11] MEDS: LANOLIN (LANSINOH) 7.5 GM CREAM 1 APPLIC TOPICAL (17:20)
[2023-11-11] MEDS: SIMETHICONE 80 MG TAB.CHEW PO (17:21)
[2023-11-11] MEDS: LABETALOL HCL 100 MG TABLET 200 MG PO (22:16)
[2023-11-12] VITALS (7 sets, daily range): BP systolic 111–145; BP diastolic 73–88; PULSE 65–86; RESP 16–20; TEMP 36.6–37.1; O2SAT 98–100
[2023-11-12] MEDS: KETOROLAC 15 MG/ML VIAL (*BKC) IV PUSH (05:25)
[2023-11-12] MEDS: ACETAMINOPHEN 325 MG TABLET 650 MG PO ×3 (05:25→18:56)
[2023-11-12 05:26] LABS: Basophils Percent Auto 0.2 % (0.2-1.2); Eosinophils Percent Auto 0.2 % (0-4.4); Hematocrit 24.7 % (37.0-47.0); Hemoglobin 8.3 g/dL (12.0-15.0); Immature Granulocyte Percent A 0.6 % (0-0.5); Lymphocytes Absolute Auto 2.02 K/mm3 (0.9-3.2); Lymphocytes Percent Auto 12.3 % (18.3-44.2); Mean Corpuscular HGB Conc 33.6 g/dl (32-36); Mean Corpuscular Volume 95.4 fl (80-100); Mean Platelet Volume 9.9 fl (7.4-10.4); Monocytes Absolute Auto 0.8 K/mm3 (0.1-0.6); Monocytes Percent Auto 4.9 % (2.6-8.5); Neutrophils Absolute Auto 13.5 K/mm3 (1.3-6.7); Neutrophils Percent Auto 81.8 % (45.5-73.1); Platelet Count Result 177 k/mm3 (150-375); Red Blood Count 2.59 M/mm3 (4.2-5.4); Red Cell Distribution Width 12.8 % (11.5-14.5); White Blood Count 16.5 K/mm3 (4.5-10.0)
[2023-11-12] MEDS: MULTIVIT/MIN/PREN/FOL AC/IRON TABLET 1 TAB PO (09:07)
[2023-11-12] MEDS: DOCUSATE SODIUM 100 MG CAPSULE PO ×2 (09:07→17:03)
[2023-11-12] MEDS: POLYSACCHARIDE IRON COMPLEX 150 MG CAPSULE PO ×2 (09:07→17:03)
[2023-11-12] MEDS: SIMETHICONE 80 MG TAB.CHEW PO ×3 (09:08→17:04)
[2023-11-12] MEDS: LABETALOL HCL 100 MG TABLET 200 MG PO ×2 (09:08→21:01)
--- NOTE | 2023-11-12 09:28 | WPDANLDPN2 ---
Anes-Prog Note L&D Date/Time: 11/12/23 09:28 Comfortable throughout: labor, delivery and section Neuraxial method: epidural Epidural/Spinal procedure site: clean & non-tender Neuro status: Neuro function grossly intact. Cardiovascular status: normal Respiratory status: normal Airway patency: baseline Mental status: baseline Post-Op hydration status: normal Vital Signs: Last Vital Signs Temp 36.8 C 11/12/23 08:00 Pulse 82 11/12/23 09:08 Resp 16 11/12/23 08:00 BP 123/80 11/12/23 08:00 Pulse Ox 100 11/12/23 08:00 O2 Del Method Room Air 11/11/23 08:45 Pain score (VAS): 4/10 I/O: Intake & Output 11/11/23 11/12/23 11/12/23 23:59 07:59 15:59 Intake Total 995 1864.2 Output Total 600 2650 Balance 395 -785.8 Post-procedural complaints: pruritis mild, no treatment Patient feedback: Patient satisfied with anesthetic care.
--- NOTE | 2023-11-12 09:28 | WPDANLDNPN2 ---
Anes-Prog Note L&D-Neuraxial Date/Time: 11/12/23 09:28 Neuraxial medications: epidural PF morphine Opiod-related complaints: pruritis mild, no treatment Patient feedback: Patient satisfied with post-operative pain management.
--- NOTE | 2023-11-12 11:20 | PC.NURSE ---
Consulted with patient to assess needs related to . Discussed with mother her successes, concerns and any questions she has. We reviewed working with the , supporting breast, protecting her nipples with an optimal deep latch, good positioning. Encouraged understanding the benefits of skin to skin, responding to feeding cues, frequencies of feeding 8-12 times in 24 hours (approximately 2-3 hours), duration of feedings, milk production, intake/output feeding sheet and signs of adequate intake encouraging swallowing at the breast. Reviewed positioning and alignment, supporting breast, off-centered (asymmetrical latch) and leading with the chin with big, open, wide gape. Infant latched off and on to the [right] breast in [football] position. Education given to the mother of how to visualize the suckling (with good rocking jaw motion) swallows (dropping of the lower jaw) and how to listen for drinking at the breast (the ka sound). The infant was [not able] to maintain latch. Baby oscillates between crying and rooting frantically and falling asleep after a few sucks. Mother denies nipple pain. She says sometimes baby is chomping at the nipple rather than sucking. Nipple care reviewed with optimal latch, good positioning. Breast pump instruction given due to [ineffective feeding]. Instructions given on cleaning, care, usage, that there should be no pain, pumping schedule for milk production, collection, and storage of human milk. Patient was assessed for correct placement, flange size (24mm). Mom has her own Motif pump and we reviewed the manual together and discussed the recommended settings modes. Mother pumped without pain and adjusted the level of suction accordingly. Advised mother to pump anytime baby doesn't have a good effective . We finger fed about 1 ml of pumped milk. We will attempt feeding again in a few hours or anytime gives feeding cues. Mother voiced understanding of the education shared, to call for assistance if the infant does not latch or if there is discomfort with . Reported to the Primary RN.
[2023-11-12] MEDS: LIDOCAINE 5% PATCH 1 PATCH TRANSDERM (12:30)
[2023-11-12] MEDS: IBUPROFEN 600 MG TABLET PO ×2 (12:31→18:56)
--- NOTE | 2023-11-12 14:00 | PC.NURSE ---
Called to patient room to assist with feeding. We worked on positioning in cross cradle. We were not able to latch baby on the left breast, she was frantic and would not maintain the latch. Mom expressed several big drops of colostrum into baby's mouth. We switched to the right breast after about 5 minutes. After several attempts, we got to latch and maintain the latch. She was suckling consistently and it was an excellent latch. We listened for swallows but were unable to hear any. Instructed mom on holding a bite for baby so she can maintain the deep latch without coming off and on. Mother was very happy and comfortable and will call out if she needs help switching sides or if baby comes off and she can't get her relatched. Advised mother there is no need to pump this feeding unless she desires, since baby stimulated both breasts and had a lengthy, good feeding. Mother says she does feel some firmness in her breasts today. Will continue to follow and assist as needed. Mother agrees to this plan of care. Reported to primary RN.
[2023-11-13] VITALS (9 sets, daily range): BP systolic 131–155; BP diastolic 78–98; PULSE 60–85; RESP 16–18; TEMP 36.6–37.3; O2SAT 100
[2023-11-13] MEDS: IBUPROFEN 600 MG TABLET PO ×4 (00:35→20:50)
[2023-11-13] MEDS: ACETAMINOPHEN 325 MG TABLET 650 MG PO ×4 (00:35→20:50)
--- NOTE | 2023-11-13 05:42 | PC.NURSE ---
Verbal order received via Dr. West to give patients 0900 400mg Labetalol now due to BP 155/92
[2023-11-13] MEDS: LABETALOL HCL 100 MG TABLET 400 MG PO ×2 (05:54→20:50)
[2023-11-13] MEDS: SIMETHICONE 80 MG TAB.CHEW PO ×3 (08:29→16:21)
[2023-11-13] MEDS: DOCUSATE SODIUM 100 MG CAPSULE PO (08:29)
[2023-11-13] MEDS: POLYSACCHARIDE IRON COMPLEX 150 MG CAPSULE PO ×2 (08:29→16:20)
[2023-11-13] MEDS: MULTIVIT/MIN/PREN/FOL AC/IRON TABLET 1 TAB PO (08:29)
--- NOTE | 2023-11-13 08:45 | PC.NURSE ---
Mother verbalizes she is able to independently latch with appropriate positioning and alignment. She has some nipple discomfort and is responsively . We reviewed that mom's nipple should be the same shape before and after feedings. She says sometimes it is flattened and she will work to get a deeper latch today. Infant is currently meeting outcomes for weight, output, jaundice, blood sugar and feeding frequencies of 8-12 times in 24 hours, staying on the breast consistently for 15-20 minutes each feeding. Mother declines any additional assistance or education at this time. Mother is encouraged to call for assistance if her doesn?t latch, pain with latching, questions or concerns. Mother voiced understanding of information shared along with the mom/baby guide for an additional resource. Reported to the Primary RN.
--- NOTE | 2023-11-13 11:04 | PM.OBPNVD ---
OB - PN: Subj Subjective Date/time seen: 11/12/23 0830 Interval history: she denies any severe headaches no scotomata or right upper quadrant pain. Reports adequate pain control. Tolerating diet. Has ambulated to the restroom without problems. Positive flatus. No bowel movement. Denies any leg pain. Lochia decreasing. No Lightheadedness or dizziness. Patient comments: pain well controlled OB - PN: Obj Data Labs 11/12/23 05:14 11/09/23 17:30 OB - PN A/P Assessment and Plan (1) Delivery by section: Status: Acute Assessment and Plan: postop day 1. Doing well. Has adequate pain control. Encourage ambulation. (2) Pre-eclampsia: Code(s): O14.90 - Unspecified pre-eclampsia, unspecified trimester Status: Acute Assessment and Plan: No severe symptoms. Adjusting blood pressure medications. Anticipate pressures may go up since magnesium off. We will adjust medications accordingly. (3) Postoperative anemia: Code(s): D64.9 - Anemia, unspecified Status: Acute Assessment and Plan: No hypovolemic symptoms. Urinating well. Time Spent With Patient Time: Total time spent is greater than 50% in coordination of care (as documented) at patient's floor/unit and/or counseling patient: Exam Const: General: comfortable and no acute distress Resp: Effort & Inspection: normal respiratory effort GI: Other: Incision intact fundus -3 umbilicus firm appropriate tender Neuro: General: patient oriented x3 Extrem: General: normal to inspection and no calf tenderness Psych: Mental Status: mental status grossly normal Affect: normal affect
--- NOTE | 2023-11-13 11:09 | PM.OBPNVD ---
OB - PN: Subj Subjective Date/time seen: 11/13/23 11:09 Interval history: She has adequate pain control, no leg pain, no headache, scotomata or RUQ pain. Lochia light. Ambulating in room well. No SOB or lightheadedness. Positive flatus, no bowel movement. Tolerating regular diet. OB - PN: Obj Data Labs 11/12/23 05:14 11/09/23 17:30 OB - PN A/P Assessment and Plan (1) Delivery by section: Status: Acute Assessment and Plan: Doing well. Routine post op care. (2) Pre-eclampsia: Code(s): O14.90 - Unspecified pre-eclampsia, unspecified trimester Status: Acute Assessment and Plan: Continue antihypertensive medication and monitoring. No signs or sympotoms of severe disease. (3) Postoperative anemia: Code(s): D64.9 - Anemia, unspecified Status: Acute Assessment and Plan: Asymptomatic. Continue iron therapy. Time Spent With Patient Time: Total time spent is greater than 50% in coordination of care (as documented) at patient's floor/unit and/or counseling patient: Exam Const: General: comfortable Resp: Effort & Inspection: normal respiratory effort GI: Other: Incision intact fundus -3 umbilicus firm, nontender Neuro: General: patient oriented x3 Extrem: General: normal to inspection and no calf tenderness Psych: Mental Status: mental status grossly normal Affect: normal affect
[2023-11-14] VITALS (21 sets, daily range): BP systolic 112–165; BP diastolic 69–105; PULSE 62–90; RESP 16–18; TEMP 36.5–36.9; O2SAT 99–100
[2023-11-14] MEDS: IBUPROFEN 600 MG TABLET PO ×4 (01:44→19:00)
[2023-11-14] MEDS: ACETAMINOPHEN 325 MG TABLET 650 MG PO ×4 (01:44→19:00)
[2023-11-14] MEDS: NIFEdipine 10 MG CAPSULE 20 MG PO (02:32)
[2023-11-14 02:59] LABS: Alanine Aminotransferase 14 U/L (6-35); Alkaline Phosphatase 77 U/L (38-126); Anion Gap 7 mmol/L (4-12); Aspartate Amino Transferase 28 U/L (14-36); Basophils Absolute Auto 0.1 K/mm3 (0.0-0.1); Basophils Percent Auto 0.4 % (0.2-1.2); Bilirubin,Total 0.2 mg/dL (0.2-1.3); Blood Urea Nitrogen 7 mg/dL (7-17); Calcium 8.5 mg/dL (8.4-10.2); Carbon Dioxide 23 mmol/L (22-30); Chloride 104 mmol/L (98-107); Eosinophils Absolute Auto 0.3 K/mm3 (0-0.3); Estimated CRCL calculation 136 ml/min; Estimated Glomerular Filt Rate > 60; Glucose 81 mg/dL (65-110); Hematocrit 27.3 % (37.0-47.0); Hemoglobin 9.5 g/dL (12.0-15.0); Immature Granulocyte Absolute 0.07 K/mm3 (0.00-0.031); Immature Granulocyte Percent A 0.5 % (0-0.5); Lymphocytes Absolute Auto 2.74 K/mm3 (0.9-3.2); Lymphocytes Percent Auto 19.8 % (18.3-44.2); Mean Corpuscular HGB Conc 34.8 g/dl (32-36); Mean Corpuscular Hemoglobin 31.9 pg (26-34); Mean Corpuscular Volume 91.6 fl (80-100); Mean Platelet Volume 9.5 fl (7.4-10.4); Monocytes Absolute Auto 0.8 K/mm3 (0.1-0.6); Monocytes Percent Auto 5.5 % (2.6-8.5); Neutrophils Absolute Auto 9.9 K/mm3 (1.3-6.7); Neutrophils Percent Auto 71.8 % (45.5-73.1); Platelet Count Result 220 k/mm3 (150-375); Potassium 4.2 mmol/L (3.4-5.0); Red Blood Count 2.98 M/mm3 (4.2-5.4); Red Cell Distribution Width 12.7 % (11.5-14.5); Sodium 134 mmol/L (137-145); Uric Acid 4.4 mg/dL (2.5-7.5); White Blood Count 13.8 K/mm3 (4.5-10.0)
[2023-11-14] MEDS: SIMETHICONE 80 MG TAB.CHEW PO ×3 (07:39→15:59)
[2023-11-14] MEDS: POLYSACCHARIDE IRON COMPLEX 150 MG CAPSULE PO ×2 (07:39→16:00)
[2023-11-14] MEDS: MULTIVIT/MIN/PREN/FOL AC/IRON TABLET 1 TAB PO (07:40)
[2023-11-14] MEDS: DOCUSATE SODIUM 100 MG CAPSULE PO ×2 (07:40→16:00)
[2023-11-14] MEDS: NIFEdipine 30 MG TAB.ER.24 PO (08:48)
[2023-11-14] MEDS: LABETALOL HCL 100 MG TABLET 400 MG PO ×2 (09:22→16:58)
--- NOTE | 2023-11-14 09:27 | PM.OBPNVD ---
OB - PN: Subj Subjective Date/time seen: 11/14/23 09:27 Interval history: She states she feels good. No PIH symptoms. She is ambulating well. No leg pain. Lochia decreasing. Has adequate pain control. OB - PN: Obj Data Labs 11/14/23 02:41 11/14/23 02:41 Labs: Laboratory Results - last 24 hr 11/14/23 02:41 WBC 13.8 H RBC 2.98 L Hgb 9.5 L Hct 27.3 L MCV 91.6 MCH 31.9 MCHC 34.8 RDW 12.7 Plt Count 220 MPV 9.5 Immature Gran % (Auto) 0.5 Neut % (Auto) 71.8 Lymph % (Auto) 19.8 [place] % (Auto) 5.5 Eos % (Auto) 2.0 Baso % (Auto) 0.4 Lymph # (Auto) 2.74 [place] # (Auto) 0.8 H Eos # (Auto) 0.3 Baso # (Auto) 0.1 Abs Immat Gran (auto) 0.07 H Absolute Neuts (auto) 9.9 H Absolute Nucleated RBC 0.000 Nucleated RBC % 0.0 Sodium 134 L Potassium 4.2 Chloride 104 Carbon Dioxide 23 Anion Gap 7 BUN 7 Creatinine 0.50 L Estim Creat Clear Calc 136 Estimated GFR > 60 Glucose 81 Uric Acid 4.4 Calcium 8.5 Total Bilirubin 0.2 AST 28 ALT 14 Alkaline Phosphatase 77 Total Protein 6.0 L Albumin 3.0 L OB - PN A/P Assessment and Plan (1) Delivery by section: Status: Acute Assessment and Plan: POD3. She is doing well. Adequate pain control. Ambulating well. (2) Pre-eclampsia: Code(s): O14.90 - Unspecified pre-eclampsia, unspecified trimester Status: Acute Assessment and Plan: Labile blood pressures. Normal PIH labs. Responded to IR Procardia last pm. Procardia XL added today. Will observe, if blood pressures remain stable into this afternoon. Then anticipate discharge today. discharge precautions discussed. PIH precautions discussed. Time Spent With Patient Time: Total time spent is greater than 50% in coordination of care (as documented) at patient's floor/unit and/or counseling patient: Exam Const: General: comfortable and no acute distress Resp: Effort & Inspection: normal respiratory effort GI: Other: incision intact no erythema Neuro: General: patient oriented x3 Extrem: General: normal to inspection, no pedal edema and no calf tenderness bilaterally Psych: Mental Status: mental status grossly normal
--- NOTE | 2023-11-14 09:42 | PM.OBDSVD ---
DS: Admitting Diagnosis Discharge Date 11/15/23 Admitting Diagnosis Pre- eclampsia with out severe symptoms DS: Discharge Diagnosis Discharge Diagnosis (1) Pre-eclampsia: Code(s): O14.90 - Unspecified pre-eclampsia, unspecified trimester Status: Acute (2) Delivery by section: Status: Acute (3) Postoperative anemia: Code(s): D64.9 - Anemia, unspecified Status: Acute OB - DS: Summary Hospital Course Hospital Course: She was admitted [facility] for pre-eclampsia. She did develop severe range pressures in labor. It did respond to medications. Labor significant for intolerance to labor. She had a primary section. section was uncomplicated. Post she initially had labile blood pressures and medications initially had to be lowered and then after she Magnesium was discontinued blood pressures were labile. She had normal pree eclamptic labs and no severe symptoms. Medications were adjusted and she was discharged to home with blood pressures not in severe range. Initially consulted IM but pressures improved after dose of hydralazine. She was discharged to home on Post op day 4. No severe symptoms. Had adequate pain control. Baby doing well. She was ambulating and had flatus. She was discharged to home with PI precautions. OB Procedures : NST, PIH Mgmt and Ultrasound OB Procedures Intrapartum: OB Procedures: : None Peripartum Data Delivery Method: Section Procedures: Procedures Operation Date: 11/11/23 05:00 Actual Procedure Side Surgeon p Section Not Applicable Allan West MD complications: none Status at Discharge Functional status at discharge: independent ambulation Time Spent with Patient Time attestation: Total time spent providing and/or coordinating discharge services: Exam Const: General: cooperative Orientation/consciousness: oriented to person, oriented to place and oriented to time HENMT: Face/Nose/Sinus: Normal external nose present Eyes: General: appearance normal, both eyes and all related structures Resp: Effort & Inspection: normal respiratory effort GI: Inspection: normal to inspection Other: incision intact Skin: General skin exam: normal color Neuro: General: oriented to person, oriented to place and oriented to time Extrem: General: normal to inspection and no calf tenderness Psych: Appearance: grossly normal Mental Status: mental status grossly normal DS: Data Data Completed and Pending Pending studies at discharge: Pending at discharge 11/11/23 07:08 Surgical [PTH] Routine Labs on day of discharge: Labs from last 24 hours 11/14/23 02:41 WBC 13.8 H RBC 2.98 L Hgb 9.5 L Hct 27.3 L MCV 91.6 MCH 31.9 MCHC 34.8 RDW 12.7 Plt Count 220 MPV 9.5 Immature Gran % (Auto) 0.5 Neut % (Auto) 71.8 Lymph % (Auto) 19.8 [place] % (Auto) 5.5 Eos % (Auto) 2.0 Baso % (Auto) 0.4 Lymph # (Auto) 2.74 [place] # (Auto) 0.8 H Eos # (Auto) 0.3 Baso # (Auto) 0.1 Abs Immat Gran (auto) 0.07 H Absolute Neuts (auto) 9.9 H Absolute Nucleated RBC 0.000 Nucleated RBC % 0.0 Sodium 134 L Potassium 4.2 Chloride 104 Carbon Dioxide 23 Anion Gap 7 BUN 7 Creatinine 0.50 L Estim Creat Clear Calc 136 Estimated GFR > 60 Glucose 81 Uric Acid 4.4 Calcium 8.5 Total Bilirubin 0.2 AST 28 ALT 14 Alkaline Phosphatase 77 Total Protein 6.0 L Albumin 3.0 L Discharge Plan Discharge Attending physician on discharge: Allan West Consulting providers: Efrain Sanon; Seema Miller V.; Nancy Kenny Discharging Clinician: Allan West Patient Disposition: Home, Self-Care Activity: may shower, no straining, no driving and pelvic rest Diet: regular Discharge Instructions: Education: Mom and Baby Guide Given to: Mother Follow-Up: Call your delivering provider's office for an appoint
--- NOTE | 2023-11-14 12:45 | PC.NURSE ---
Mother verbalizes she is able to independently latch with appropriate positioning and alignment. She denies any nipple discomfort and is responsively . Infant is currently meeting outcomes for weight, output, jaundice, blood sugar and feeding frequencies of 8-12 times in 24 hours. Mother declines any additional assistance or education at this time. Mother is encouraged to call for assistance if her infant doesn?t latch, pain with latching, questions or concerns. Mother voiced understanding of information shared along with the mom/baby guide for an additional resource. Reported to the Primary RN.
[2023-11-14] MEDS: CYCLOBENZAPRINE HCL 10 MG TABLET PO (16:00)
[2023-11-14] MEDS: LABETALOL HCL 100 MG TABLET 200 MG PO (19:45)
[2023-11-14] MEDS: LIDOCAINE 5% PATCH 1 PATCH TRANSDERM (19:49)
[2023-11-15] VITALS (7 sets, daily range): BP systolic 133–152; BP diastolic 81–104; PULSE 70–82; O2SAT 99
[2023-11-15] MEDS: IBUPROFEN 600 MG TABLET PO ×2 (00:52→07:59)
[2023-11-15] MEDS: hydrALAZINE HCL 25 MG TABLET PO (00:52)
[2023-11-15] MEDS: ACETAMINOPHEN 325 MG TABLET 650 MG PO ×2 (00:53→07:59)
[2023-11-15] MEDS: LABETALOL HCL 100 MG TABLET 600 MG PO ×2 (02:11→10:13)
[2023-11-15] MEDS: SIMETHICONE 80 MG TAB.CHEW PO (07:59)
[2023-11-15] MEDS: POLYSACCHARIDE IRON COMPLEX 150 MG CAPSULE PO (07:59)
[2023-11-15] MEDS: DOCUSATE SODIUM 100 MG CAPSULE PO (07:59)
[2023-11-15] MEDS: MULTIVIT/MIN/PREN/FOL AC/IRON TABLET 1 TAB PO (07:59)
[2023-11-15] MEDS: NIFEdipine 30 MG TAB.ER.24 PO (09:07)
--- NOTE | 2023-11-15 10:21 | PC.NURSE ---
Patient viewed the discharge video Mother & Baby Care, The First Two Weeks . Patient was given the opportunity and encouraged to ask questions. Patient verbalized understanding of information shared and has been given the mother/baby guide for home reference.
[2023-11-16 14:04] VITALS: BP 124/74; PULSE 83; RESP 18; TEMP 37.2; O2SAT 100
== END 2023-11-15 11:30 | disposition home or self-care (01) | DRG 807 ==
LOC: ANHLDR 11-11 06:50 → ANHOB2 11-11 09:01
PROVIDERS: Admitting Provider Obstetrics & Gynecology; PCP Nurse Practitioner Family; Visit Provider Nurse Practitioner Acute Care
PROC: (CPT 59514; principal; 2023-11-11 05:00)
DX: O14.04 Mild to moderate pre-eclampsia, complicating childbirth (principal); Z37.0 Single live birth; Z3A.37 37 weeks gestation of pregnancy; O69.81X0 Labor and delivery complicated by cord around neck, without compression, not applicable or unspecified; O36.8330 Maternal care for abnormalities of the fetal heart rate or rhythm, third trimester, not applicable or unspecified; O61.0 Failed medical induction of labor; O90.81 Anemia of the puerperium
CPT/HCPCS: 36415; 80053; 84550; 85025; 86592; 86703; 86850; 86900; 86901; 88307; A9270; G0432; J0456; J0690; J1885; J2274; J2405; J2590; J2795; J3475; J7120

== ENCOUNTER 2023-11-17 14:08 | Emergency (ER) | payer OTHER, SELFPAY ==
--- NOTE | ~2023-11-17 | US_ITS ---
EXAMINATION: US right upper quadrant DATE: 11/17/2023 15:13 INDICATION: Epigastric abdominal pain. Vomiting. TECHNIQUE: Multiple grayscale and Doppler ultrasound images of the abdomen were obtained. COMPARISON: None FINDINGS: The visualized portions of the head, body, and tail of the pancreas are normal. The liver i s normal without focal lesion. There is normal flow in main portal vein. The gallbladder is normal in size. No gallstones or gallbladder wall thickening. There is no sonographic Mtz's sign. The commo n duct is normal and measures 4 mm. IMPRESSION: 1. Normal right upper quadrant ultrasound. Reviewed, dictated and finalized at location A.
--- NOTE | ~2023-11-17 | XR_ITS ---
EXAMINATION: XR chest 2V DATE: 11/17/2023 17:32 INDICATION: Epigastric abdominal pain. TECHNIQUE: Frontal and lateral views of the chest were obtained. COMPARISON: None. FINDINGS: There is mild atelectasis at the lung bases. Calcified pulmonary nodules and calcified dequan r and mediastinal lymph nodes are consistent with old granulomatous disease. No pleural effusion or p neumothorax. The heart size is normal. IMPRESSION: 1. Mild atelectasis at the lung bases. Reviewed, dictated and finalized at location A.
[2023-11-17 14:36] VITALS: BP 151/96; PULSE 82; RESP 16; TEMP 36.7; O2SAT 99
--- NOTE | 2023-11-17 14:40 | ED.ABDPAIN ---
HPI - Abdominal Pain General Chief Complaint: Abdominal Pain <BART Sapp Last Filed: 11/19/23 09:25> Stated Complaint: abdominal pain <BART Sapp Last Filed: 11/19/23 09:25> Time Seen by Provider: 11/17/23 14:40 <BART Sapp Last Filed: 11/19/23 09:25> Focused HPI: This is a 28 year old female that presents to the ER for epigastric abdominal pain. Ongoing over the last several days. Associated with nausea and vomiting. Recent c section due to pre-eclampsia. Denies fevers or dysuria. GENERAL: Well-appearing, well-nourished, and in no acute distress. HEAD: Normocephalic, atraumatic. CHEST: Clear to auscultation. ?No respiratory distress. HEART: Regular rate and rhythm.? NEURO: ?Alert and oriented x3. Patient screened in triage and initial orders placed.? ?Additional care and disposition to be based upon?diagnostic testing and treatment. <BART Sapp Last Filed: 11/19/23 09:25> Source: patient <BART Martinez Last Filed: 11/18/23 04:10> Mode of arrival: ambulatory <BART Martinez Last Filed: 11/18/23 04:10> Limitations: no limitations <BART Martinez Last Filed: 11/18/23 04:10> History of Present Illness HPI narrative: Agree with above HPI. Currently on labetalol for preeclampsia/hypertension. OBGYN = Dr. West. 11/10. Was hospitalized for several days afterwards to adjust BP meds. Currently on 600 q12h. Also reports intermittent N/V, trouble keeping down meds. Mostly associated with eating or taking medications. Was advised to take omeprazole but hasn't started this yet. Denies any shortness breath, chest pain, swelling of legs, headaches, vision changes. <BART Martinez Last Filed: 11/18/23 04:10> Related Data Home Medications: Home Medications Medication Instructions Recorded Confirmed escitalopram oxalate 10 mg tablet 10 mg PO DAILY 12/16/22 11/09/23 (Lexapro) ferrous sulfate 325 mg (65 mg 325 mg PO DAILY 10/09/23 11/09/23 iron) tablet prenat.vits,noemi,pnj-eoda-whwin 1 tablet PO DAILY 10/30/23 11/09/23 <Tisha Salinas PA-C - Last Filed: 11/19/23 09:25> Allergies/Adverse Reactions: Allergies Allergy/AdvReac Type Severity Reaction Status Date / Time prednisone Allergy Muscle Verified 11/17/23 14:43 Spasms <Tisha Salinas PA-C - Last Filed: 11/19/23 09:25> Review of Systems Review of Systems: All systems reviewed & are unremarkable except as noted in HPI. <Paige Urias PA-C - Last Filed: 11/18/23 04:10> All systems reviewed & are unremarkable except as noted in HPI and below <Paige Urias PA-C - Last Filed: 11/18/23 04:10> FOR[facility]LY [facility] Past Medical History Medical History: Medical History Anxiety Encounter for cervical Pap smear with pelvic exam <Tisha Salinas PA-C - Last Filed: 11/19/23 09:25> Family History Family History: Family History Father Hypertension Depression Mother Depression Sibling Depression <Tisha Salinas PA-C - Last Filed: 11/19/23 09:25> Social History Social History: Social History Smoking status: Never smoker Alcohol intake: current Drinks per week: 2 Substance use: never Do You Feel Safe in your Home?: Yes Lack of Transportation: No Lack of Food: Never True Current Housing: I Have Housing Concerned About Future Housing: No Difficulty Paying Gas/Electric Bills: No Difficulty Paying for Meds: No Currently Unemployed: No Education: Master's Degree or Higher Difficulty w/ Childcare or Family Care: No Occupation/Education: occupation 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
[2023-11-17 15:46] LABS: Basophils Percent Auto 0.3 % (0.2-1.2); Eosinophils Absolute Auto 0.1 K/mm3 (0-0.3); Eosinophils Percent Auto 0.3 % (0-4.4); Hematocrit 30.5 % (37.0-47.0); Hemoglobin 10.7 g/dL (12.0-15.0); Immature Granulocyte Percent A 0.7 % (0-0.5); Lymphocytes Absolute Auto 1.82 K/mm3 (0.9-3.2); Lymphocytes Percent Auto 12.5 % (18.3-44.2); Mean Corpuscular HGB Conc 35.1 g/dl (32-36); Mean Corpuscular Hemoglobin 32.4 pg (26-34); Mean Corpuscular Volume 92.4 fl (80-100); Mean Platelet Volume 8.7 fl (7.4-10.4); Monocytes Absolute Auto 0.7 K/mm3 (0.1-0.6); Monocytes Percent Auto 4.6 % (2.6-8.5); Neutrophils Absolute Auto 11.9 K/mm3 (1.3-6.7); Neutrophils Percent Auto 81.6 % (45.5-73.1); Platelet Count Result 424 k/mm3 (150-375); Red Cell Distribution Width 12.3 % (11.5-14.5); White Blood Count 14.5 K/mm3 (4.5-10.0)
[2023-11-17 15:57] LABS: Alanine Aminotransferase 15 U/L (6-35); Albumin Level 3.8 g/dL (3.5-5.1); Alkaline Phosphatase 77 U/L (38-126); Anion Gap 11 mmol/L (4-12); Aspartate Amino Transferase 28 U/L (14-36); Bilirubin,Total 0.4 mg/dL (0.2-1.3); Blood Urea Nitrogen 12 mg/dL (7-17); Calcium 9.4 mg/dL (8.4-10.2); Carbon Dioxide 24 mmol/L (22-30); Chloride 100 mmol/L (98-107); Estimated CRCL calculation 100 ml/min; Estimated Glomerular Filt Rate > 60; Glucose 91 mg/dL (65-110); Lipase 59 U/L (23-300); Potassium 3.6 mmol/L (3.4-5.0); Sodium 135 mmol/L (137-145)
[2023-11-17 16:19] LABS: Add Urine Microscopic? YES; Appearance Urine Clear (Clear); Bacteria Urine Rare /hpf; Bilirubin Urine Negative (Negative); Blood Urine 2+ (Negative); Color Urine Yellow (Yellow); Glucose Urine UA Negative (Negative); Ketones Urine 2+ mg/dL (Negative); Leukocyte Esterase Ur 1+ LEU/UL (Negative); Nitrate Urine Negative (Negative); Non Pathogenic Casts 0-2; Protein Urine 1+ mg/dL (Negative); RBC Urine 0-2 /hpf (0-2); Specific Grav Ur 1.022 (1.001-1.035); Squamous Epithelial Cell Urine Few /hpf (Few); Urobilinogen Urine 0.2 mg/dL (<2.0)
--- NOTE | 2023-11-17 16:54 | ECG_ITS ---
Test Date: 2023-11-17 19:54:12 Measurements Intervals [place] Rate: 68 P: 52 VA: 110 QRS: -9 QRSD: 76 T: 17 QT: 354 QTc: 379 Interpretive Statements SINUS RHYTHM WITH SHORT VA INTERVAL NORMAL ELECTROCARDIOGRAM No previous ECG available for comparison Electronically Signed On 11-19-2023 12:53:41 CDT by Ramon Tucker M.D.
[2023-11-17] MEDS: ONDANSETRON HCL ODT 4 MG TABLET PO (17:01)
[2023-11-17 17:21] LABS: Troponin I < 0.012 ng/mL (0.000-0.034)
[2023-11-18 00:09] VITALS: BP 140/88; PULSE 84; RESP 18; TEMP 36.8; O2SAT 100
[2023-11-18] MEDS: ONDANSETRON HCL ODT 4 MG TABLET PO (00:17)
== END 2023-11-18 00:57 | disposition home or self-care (01) ==
PROVIDERS: Physician Assistant; Emergency Provider Physician Assistant; PCP Nurse Practitioner Family
DX: O90.89 Other complications of the puerperium, not elsewhere classified (principal); R10.13 Epigastric pain; O14.95 Unspecified pre-eclampsia, complicating the puerperium; O99.345 Other mental disorders complicating the puerperium; F41.9 Anxiety disorder, unspecified
CPT/HCPCS: 36415; 71046; 76705; 80053; 81001; 83690; 84484; 85025; 87086; 87088; 93005; 99284; A9270